=== PATIENT | female | born 1990 | race Caucasian/White ===

== ENCOUNTER 2017-08-17 17:04 | Emergency (ER) | payer BC ==
[2017-08-17 17:11] VITALS: BP 132/55; PULSE 78; TEMP 98.7; BMI 32.5
--- NOTE | 2017-08-17 17:11 | PDOC ---
Rapid Medical Evaluation Chief Complaint: Vaginal Bleeding Time Seen by Provider: 08/17/17 17:06 Medical Evaluation: 08/17/17 17:06 The patient presents with a chief complaint of: 7 weeks . Pt. states she has US last week with positive heart beat.Vaginal bleeding for one day. Light spotting yesterday. Since stopped. Pt. believes she saw a tissue matter pass when using the bathroom this afternoon. hx of placental abruption at 33 weeks with loss. I have performed a brief in-person evaluation of this patient; Pertinent physical exam findings: (-) TTP of abdomen. Soft, no guarding/reboumd I have ordered the following: CBC, CMP, UA, UC, Beta Hcg, Type and Screen, Transvaginal US. The patient will proceed to the ED for further evaluation. PHYSICIAN INTERVENTIONAL CARDIOLOGIST Dr.Mary [facility]
[2017-08-17 17:45] LABS: BASO % 0.4 % (0-2.0); EOS # 0.1 #; EOS % 0.7 % (0-4.5); LYMPH # 3.3; MCH 26.3 pg (25.7-33.7); MCHC 32.6 g/dl (32.0-36.0); MEAN CELL VOLUME 80.6 fl (80-96); MEAN PLT VOLUME 9.4 fl (7.5-11.1); MONO # 0.6 #; NEUT # 5.5 #; PLATELET COUNT 264 K/MM3 (134-434); RDW 16.7 % (11.6-15.6); WHITE BLOOD COUNT 9.5 K/mm3 (4.0-10.0)
[2017-08-17 18:23] LABS: URINE APPEARANCE SLCLOUDY; URINE BILIRUBIN NEGATIVE (NEGATIVE); URINE BLOOD 2+ (NEGATIVE); URINE COLOR STRAW; URINE GLUCOSE (UA) NEGATIVE (NEGATIVE); URINE KETONE NEGATIVE (NEGATIVE); URINE LEUK ESTERASE NEGATIVE (NEGATIVE); URINE NITRITE NEGATIVE (NEGATIVE); URINE PROTEIN NEGATIVE (NEGATIVE); URINE UROBILINOGEN NEGATIVE mg/dL (0.2-1.0)
--- NOTE | 2017-08-17 18:35 | PDOC ---
History of Present Illness - General Chief Complaint: Vaginal Bleeding Stated Complaint: VAGINAL BLEEDING (7WKS ) Time Seen by Provider: 08/17/17 17:06 History Source: Patient Exam Limitations: No Limitations - History of Present Illness Initial Comments: 08/17/17 18:29 27F with pmh of 33week old placental abruption with demise in April presents with vaginal spotting since this morning after 30 of cardio followed a few hours later by jelly like light pink solid discharge. No cramping, abdominal pain, dysuria. Patient is followed by high-risk OBGYN in [place] (bp last preg was in the 140's). LAst US was 2 weeks ago. Past History - Past Medical History Allergies/Adverse Reactions: Allergies Allergy/AdvReac Type Severity Reaction Status Date / Time No Known Allergies Allergy Verified 08/17/17 17:10 COPD: No Other medical history: gestational HTN, - Reproductive History Is Patient Now?: Yes (#): 2 Para: 0 Cervical CA: No Dysfunctional Uterine Bleeding: No Ectopic : No Endometrial CA: No Polycystic Ovaries: No Therapeutic (s) & number: No Tubal Ligation: No Spontaneous : 1 - Suicide/Smoking/Psychosocial Hx Smoking History: Never smoked Information on smoking cessation initiated: No Review of Systems - Review of Systems Able to Perform ROS?: Yes Is the patient limited Yoruba proficient: No Constitutional: No: Symptoms Reported HEENTM: No: Symptoms Reported Respiratory: No: Symptoms reported Cardiac (ROS): No: Symptoms Reported ABD/GI: No: Symptoms Reported : Yes: See HPI Musculoskeletal: No: Symptoms Reported Integumentary: No: Symptoms Reported Neurological: No: Symptoms reported Endocrine: No: Symptoms Reported All Other Systems: Reviewed and Negative *Physical Exam - Vital Signs Last Vital Signs Temp Pulse Resp BP Pulse Ox 98.7 F 78 18 132/55 99 08/17/17 17:06 08/17/17 17:06 08/17/17 17:06 08/17/17 17:06 08/17/17 17:06 - Physical Exam General Appearance: Yes: Nourished, Appropriately Dressed. No: Apparent Distress HEENT: positive: EOMI, DILIP, Normal ENT Inspection Neck: positive: Trachea midline. negative: Tender Respiratory/Chest: positive: Lungs Clear, Normal Breath Sounds. negative: Chest Tender Cardiovascular: positive: Regular Rhythm, Regular Rate, S1, S2 Gastrointestinal/Abdominal: positive: Normal Bowel Sounds. negative: Tender, Flat Neurologic: positive: Fully Oriented, Alert, Normal Mood/Affect, Normal Response , Motor Strength 12/23 ED Treatment Course - LABORATORY CBC & Chemistry Diagram: 08/17/17 17:18 08/17/17 17:18 - ADDITIONAL ORDERS Additional order review: 08/17/17 17:18 RBC 5.06 MCV 80.6 MCHC 32.6 RDW 16.7 H MPV 9.4 Neutrophils % 58.0 Lymphocytes % 35.0 Monocytes % 5.9 Eosinophils % 0.7 Basophils % 0.4 - RADIOLOGY Radiology Studies Ordered: Category Date Time Status TRANSVAGINAL US PREG [US] Stat Ultrasound 08/17/17 17:12 Ordered Medical Decision Making - Medical Decision Making 08/17/17 18:34 27F with h/o of placental abrution in April present with Threatened at 8 weeks. Pending beta hcg and TVUS 08/17/17 19:29 TVUS: Clinical information: vaginal bleeding, possible threatened , 8 week gestation dated by TVUS at [place] The exam demonstrates a single viable intrauterine gestation at approximately 7 weeks 1 day with a crown-rump length of 1.0 cm. Embryonic cardiac rate 163 BPM. No subchorionic implantation bleed is seen. There is no definite uterine pathology. The ovaries appear unremarkable. No free intraperitoneal fluid is noted 08/17/17 19:30 Patient discharged with follow up with high-risk OBGYN *DC/Admit/Observation/Transfer Diagnosis at time of Disposition: Threatened - Discharge Dispostion Disposition: HOME Admit: No - Referrals - Patient Instructions Printed Discharge Instructions: DI for Threatened Additional Instructions: Please follow up with your obgyn within 2-3 days. Come back to the ER for any new, worsening or concerning symptoms - Post Discharge Activity
[2017-08-17 18:38] LABS: ALK PHOS 88 U/L (45-117); ANION GAP 8 (8-16); BILIRUBIN,TOTAL 0.3 mg/dL (0.2-1.0); CO2 27 mmol/L (21-32); CREATININE 0.5 mg/dL (0.55-1.02); GLUCOSE,RANDOM 88 mg/dL (74-106); SGOT/AST 10 U/L (15-37); SGPT/ALT 17 U/L (12-78); TOT PROT 7.5 g/dl (6.4-8.2)
--- NOTE | 2017-08-17 19:37 | PDOC ---
Attending Attestation - Resident Resident Name: Josafat Garner - ED Attending Attestation I have performed the following: I have examined & evaluated the patient, The case was reviewed & discussed with the resident, I agree w/resident's findings & plan, Exceptions are as noted - HPI HPI: 08/17/17 19:34 27-year-old with notable history of present accreta in third trimester, currently under high risk with otherwise uncomplicated to date presents with dark discharge from vagina today without bright red blood or cramping. - Physicial Exam PE: 08/17/17 19:36 Vital signs stable Abdomen is benign No active discharge or bleeding - Medical Decision Making 08/17/17 19:36 Patient seen and evaluated with the resident. I agree with the overall evaluation, assessment, and management with the following summary of visit: 27-year-old female with LMP 7 weeks ago with vaginal discharge/bleeding. HCG 44,000 Rh+ Ultrasound with IUP and normal heart rate and no abnormalities Patient and reassured, have close follow-up with their [employer] at [place], understand return criteria.
[2017-08-17 21:36] LABS: URINE BACTERIA RARE /hpf (NONE SEEN); URINE RBC <1 /hpf (0-3); URINE WBC 1 /hpf (3-5)
[2017-08-17 23:47] LABS: URINE LEUK ESTERASE Negative (NEGATIVE)
== END 2017-08-17 19:37 | disposition home or self-care (01) ==
LOC: JER 17:04
DX: O26.891 Other specified pregnancy related conditions, first trimester (principal); O20.0 Threatened abortion; Z3A.01 Less than 8 weeks gestation of pregnancy
CPT/HCPCS: 36415; 76801-TC; 80053; 81003; 81015; 84702; 85025; 86850; 86900; 86901; 87086; 99282-25